=== PATIENT | male | born 1985 | race African-American/Black ===

== ENCOUNTER 2019-05-21 11:44 | Emergency (ER) | payer BC, OTHER ==
[~2019-05-21] VITALS: Ht 177.8 cm; Wt 72.6 kg
[~2019-05-21 11:44] MED LIST: PROBIOTIC1 EAC1 PO
[2019-05-21 14:30] VITALS: BP 131/70
== END 2019-05-21 14:30 | disposition home or self-care (01) ==
LOC: ER 11:44
DX: T18.8XXA Foreign body in other parts of alimentary tract, initial encounter (principal); F17.210 Nicotine dependence, cigarettes, uncomplicated; Z79.899 Other long term (current) drug therapy; Y92.89 Other specified places as the place of occurrence of the external cause